=== PATIENT | female | born 1960 | race Caucasian/White ===

== ENCOUNTER 2021-04-09 07:09 | Emergency (ER) | payer OTHER ==
[~2021-04-09 07:09] MED LIST: AMLODIPINE BESYL5 MG PO; COQ-10100 MG PO; DICLOFENAC SODI75 MG PO; DULOXETINE HCL60 MG PO; GABAPENTIN600 MG PO; LISINOPRIL-HCT1 EAC1 PO; MELOXICAM15 MG PO; METOPROLOL SUCC25 MG PO; MOBIC7.5 MG PO; MONTELUKAST SOD10 MG PO; OXYCODON-ACETA1 EAC1 PO; OXYCODONE-ACET1 EAC1 PO; PERCOCET 5-3251 EACH PO; ROSUVASTATIN CA10 MG PO; SIMVASTATIN20 MG PO; VITAMIN D3125 MC1 PO
[2021-04-09 07:52] LABS: BASOPHIL 0.2 % (0-2); EOSINOPHIL 3.2 % (0-5); HCT 45.6 % (37.0-47.0); HGB 15.1 g/dl (12.5-16.0); LYMPHOCYTE 24.3 % (15-48); MCH 30.3 pg (25.0-31.0); MCHC 33.1 g/dL (32.0-36.0); MCV 91.6 fL (78.0-100.0); MONOCYTE 7.8 % (0-12); MPV 11.3 fL (6.0-9.5); NRBC 0; PLT 194 K/uL (150-400); RBC 4.98 M/uL (4.20-5.40); RDW 12.9 % (11.5-14.0); WBC 8.4 K/uL (4.0-10.5)
[2021-04-09 08:01] LABS: INR 0.98 (0.9-1.2); PROTHROMBIN TIME 12.3 SECONDS (11.4-13.6)
[2021-04-09 08:19] LABS: ALBUMIN 3.2 g/dL (3.4-5.0); BILIRUBIN - TOTAL 0.3 mg/dL (0.2-1.0); CREATININE 0.98 mg/dL (0.51-0.95); GLOBULIN (CALCULATION) 3.8 g/dL; POTASSIUM 3.9 mmol/L (3.5-5.1)
[2021-05-19] MEDS ORDERED: OXYCODONE-ACET1 EAC1 PO (10:25)
== END 2021-04-09 13:00 | disposition other institution (70) ==
LOC: FER 07:09
PROVIDERS: Emergency Medicine
DX: R07.9 Chest pain, unspecified (principal); M54.9 Dorsalgia, unspecified; R51.9 Headache, unspecified; E78.5 Hyperlipidemia, unspecified; I10 Essential (primary) hypertension; Z86.718 Personal history of other venous thrombosis and embolism
CPT/HCPCS: 36415; 71045; 80053; 83880; 84484; 85025; 85610; 85730; 93005; J1644

== ENCOUNTER 2021-11-27 15:01 | Emergency (ER) | payer OTHER ==
[~2021-11-27 15:01] MED LIST changes: +CYMBALTA 30MG C30 MG PO
[2021-11-27] MEDS ORDERED: ONDANSETRON HCL4 MG PO (15:55)
[2021-11-27 16:35] LABS: INFLUENZA A NAA NEGATIVE (NEGATIVE)
[2021-11-27 16:46] LABS: CORONAVIRUS 2019 SARS-COV-2 POSITIVE (NEGATIVE)
== END 2021-11-27 15:58 | disposition home or self-care (01) ==
LOC: FER 15:01
PROVIDERS: Physician Assistant Medical
DX: U07.1 COVID-19 (principal); J44.9 Chronic obstructive pulmonary disease, unspecified; I25.2 Old myocardial infarction; I10 Essential (primary) hypertension; F17.210 Nicotine dependence, cigarettes, uncomplicated; Z95.5 Presence of coronary angioplasty implant and graft; Z79.82 Long term (current) use of aspirin; Z79.899 Other long term (current) drug therapy
CPT/HCPCS: 99283; U0002